=== PATIENT | female | born 1935 | race Asian ===

== ENCOUNTER → 2024-03-14 | Outpatient (CLI) | payer MEDICARE, OTHER, SELFPAY ==
--- NOTE | 2024-03-14 09:36 | XR_ITS ---
Examination: Screening digital mammography, unilateral right Computer aided detection 3-D breast Tomosynthesis, unilateral Date and time of exam: March 14, 2024 0941 hours Compared to mammograms dating to June 05, 2016 Indication: Screening Technique: Nonmagnified MLO, CC views of the right breast to been obtained, reconstructed from 3-D Tomosynthesis images. R2 computer aided detection program utilized for evaluation of suspicious masses and/or abnormal calcifications. 3-D Tomosynthesis images obtained. Findings: Scattered areas of fibroglandular density Benign calcifications. No interval suspicious masses Impression: BI-RADS category II Benign findings Recommend 1 year follow-up mammogram.
== END | disposition home or self-care (01) ==
PROVIDERS: PCP Family Medicine; Referring Provider Family Medicine; Visit Provider Family Medicine
DX: Z12.31 Encounter for screening mammogram for malignant neoplasm of breast (principal); R92.323 Mammographic fibroglandular density, bilateral breasts; R92.1 Mammographic calcification found on diagnostic imaging of breast
CPT/HCPCS: 77063; 77067

== ENCOUNTER → 2024-03-31 | Outpatient (CLI) | payer MEDICARE, OTHER, SELFPAY ==
[2024-03-31 10:03] LABS: Collection Type, Urine Clean Catch; Squamous Epithelial Cell,Urine 0 /hpf (0-5)
[2024-03-31 10:41] LABS: Basophils # (Auto) 0.1 Thou/mm3 (0.0-0.2); Basophils % (Auto) 1 % (0-2.5); Eosinophils # (Auto) 0.4 Thou/mm3 (0.0-0.5); Eosinophils % (Auto) 4 % (0-10); Hematocrit 35.9 % (36.0-46.0); Hemoglobin 12.2 g/dL (12.0-16.0); Immature Granulocytes % (Auto) 0 % (0-0); Immature Granulocytes Auto 0.02 Thou/mm3 (0.00-0.00); Lymphocytes # (Auto) 2.9 Thou/mm3 (1.0-4.8); Lymphocytes % (Auto) 30 % (10-50); Mean Corpuscular Hemoglobin 31.7 pg (25.0-35.0); Mean Corpuscular Volume 93 fL (80-100); Monocytes # (Auto) 0.6 Thou/mm3 (0.0-0.8); Monocytes % (Auto) 7 % (0-12); Neutrophils # (Auto) 5.6 Thou/mm3 (1.8-7.7); Neutrophils % (Auto) 58 % (37-80); Nucleated Red Blood Cell % 0 /100 WBC (0); Platelet Count 307 Thou/mm3 (140-440); RDW Standard Deviation 41.3 fL (36.4-46.3); Red Blood Count 3.85 Miln/mm3 (4.00-5.20); White Blood Count 9.6 Thou/mm3 (3.6-11.0)
[2024-03-31 10:43] LABS: Bilirubin,Urine Negative (Negative); Blood,Urine Negative (Negative); Clarity,Urine Clear (Clear/Hazy); Color,Urine Lt-Yellow (Lt Yel-Yel); Glucose, Urine Negative (Negative); Ketones,Urine Negative (Negative); Leukocyte Esterase,Urine Negative (Negative); Nitrite,Urine Negative (Negative); Protein,Urine Negative (Neg - Trace); RBC,Urine 1 /hpf (0-3); Specific Gravity,Urine 1.011 (1.001-1.035); Urobilinogen,Urine Negative mg/dL (0.0-1.0); WBC,Urine 1 /hpf (0-5)
[2024-03-31 10:51] LABS: Alanine Aminotransferase 18 U/L (10-49); Albumin, Serum 4.8 gm/dL (3.4-4.8); Albumin/Globulin Ratio 1.7 (1.2-2.2); Alkaline Phosphatase 74 U/L (46-116); Anion Gap 8 (7-16); Aspartate Amino Transferase 26 U/L (0-34); BUN/Creatinine Ratio 17 Ratio (12-20); Bilirubin,Total 0.5 mg/dL (0.3-1.2); Blood Urea Nitrogen 19 mg/dL (9-23); Calcium 10.1 mg/dL (8.3-10.6); Calcium (Corrected) 10.1 mg/dL (8.5-10.1); Carbon Dioxide 28.2 mMol/L (20.0-31.0); Cardiac Risk Estimate 3.5 RATIO (3.7-5.6); Chloride 103 mMol/L (98-107); Cholesterol 214 mg/dL (132-200); Creatinine (Component) 1.1 mg/dL (0.6-1.3); Globulin 2.8 gm/dL (2.3-3.5); Glucose 107 mg/dL (74-106); HDL Cholesterol 61 mg/dL (40-60); LDL Cholesterol,Calculated 125 mg/dL (0-130); Osmolality,Calculated 279 (275-295); Potassium 4.6 mMol/L (3.4-5.1); Sodium 139 mMol/L (136-145); Thyroid Stimulating Hormone 2.74 uIU/mL (0.55-4.78); Total Protein 7.6 gm/dL (5.7-8.2); Triglycerides 138 mg/dL (30-150); eGFR 48 See Note
== END | disposition home or self-care (01) ==
LOC: COPL 09:21
PROVIDERS: PCP Family Medicine; Referring Provider Family Medicine; Visit Provider Family Medicine
DX: I10 Essential (primary) hypertension (principal); E78.00 Pure hypercholesterolemia, unspecified
CPT/HCPCS: 36415; 80053; 80061; 81001; 84443; 85025

== ENCOUNTER 2024-04-13 19:53 | Emergency (ER) | payer MEDICARE, OTHER, SELFPAY ==
[2024-04-13 20:00] VITALS: BP 171/81; PULSE 74; RESP 16; TEMP 37.2; O2SAT 99
[2024-04-13 20:01] VITALS: RESP 16; O2SAT 98; BMI 24.2
--- NOTE | 2024-04-13 21:16 | EDNOTE_ITS ---
ED Fall Injury RME/HPI General Chief Complaint: Fall Stated Complaint: FALL/ BACK PAIN Time Seen by Provider: 04/13/24 20:55 Arrival date/time: 04/13/24 19:53 RME / HPI RME / HPI Narrative: Patient is a 88-year-old female with past medical history of hypertension, CAD s/p 1 stent, breast cancer s/p left mastectomy, asthma, osteoarthritis, GERD, right ear deafness who was brought in by ambulance on 04/13/2024 due to ground level fall around 5 pm today at her home. Patient was mopping and slipped landing on her hardwood floor. She thinks she landed on her side and denies hit to head or loss of consciousness. The fall was unwitnessed and patient was able to crawl to her watch to call for help. She takes a baby aspirin daily. She denies any dizziness, lightheadedness prior to fall. Patient's daughter at the bedside to help provide history. Patient lives alone and is typically independent with all ADLs. The patient reports 10/10 right shoulder pain and low back pain. MD complaint: fall Onset (ago): hour(s) Fall from: standing Fall witnessed: no Place fall occurred: home Loss of consciousness: none Prolonged down time: yes Symptoms prior to fall: none Context: tripped/slipped Location of injury: back and other (right shoulder) Location of injury - extremities: Right: shoulder Severity: severe Severity scale (1-10): 10 Related Data Home Medications ?Medication ?Instructions ?Recorded ?Confirmed loratadine 10 mg capsule 10 mg PO QDAY 10/23/1706/10 metoprolol succinate 50 mg 50 mg PO QDAY 10/23/1706/29 tablet,extended release 24 hr (Toprol XL) fluticasone propionate 50 1 - 2 spray intranasal QDAY 01/16/21 06/10/22 mcg/actuation nasal spray,suspension losartan 100 mg tablet 100 mg PO DAILY 06/10/2206/29 Previous Rx's ?Medication ?Instructions ?Recorded omeprazole 40 mg capsule,delayed 40 mg PO QDAY #30 cap s 10/23/17 release acetaminophen 500 mg tablet 1,000 mg (2 x 500 mg) PO Q 6H PRN 08/25/21 pain #20 tabs meclizine 25 mg tablet 25 mg PO BID PRN dizziness # 20 tabs 12/27/22 hydrocodone 2.5 mg-acetaminophen 1 tab PO BID PRN pain (scale score 04/14/24 325 mg tablet 7-10) 7 days #14 tabs Allergies Allergy/AdvReac Type Severity Reaction Status Date / Time No Known Allergies Allergy Verified 12/27/22 09:48 Review of Systems Review of Systems Systems Reviewed: All systems reviewed, normal except as documented Past Medical History Past Medical History Comments PMH COMMENT: Past Medical History: Hypertension, CAD s/p 1 stent, breast cancer s/p left mastectomy (no chemo or radiation), asthma, osteoarthritis, GERD, right ear deafness Family History: Surgical History: Left mastectomy, PCI with 1 stent, right ear surgery Social History: Denies history of smoking, denies current alcohol use, denies recreational drug use. Patient lives alone and is independent with all ADLs. Current Medications: Aspirin 81 mg qday, metoprolol succinate 50 mg qday, losartan 100 mg qday, omeprazole 40 mg qday, montelukast 10 gm qday, loratidine 10 mg qday, fluticasone inhaler, celecoxib as needed (Source: Patient EMT card and patient recall) Allergies: No known drug allergies ED Exam Narrative Physical exam: Physical Exam General: Awake and in mild distress. Conversational and non-toxic appearing. HEENT: Normocephalic, atraumatic, mucous membranes moist. Heart: Regular rate and rhythm, no murmurs. Lungs: Clear to auscultation with no wheezing or crackles. Abdomen: Soft, nondistended, nontender, positive bowel sounds. ?No guarding or rebound tenderness. Neurologic: Alert and oriented x3, no gross neurological deficit, and patient able to move all 4 extremities. Back: Tenderness to palpation of the lumbar area, no obvious step offs or deformity. Extremities: No edema. Right shoulder with severe tenderness to palpation posteriorly. The right forearm is flexed, shoulder is adducted and internally rotated. Patient unable to extend shoulder or forearm secondary to pain. Skin: No rash or ecchymoses over the areas of pain including the shoulders, back, or hips. Course Quality Measures none Orders Category Date Time Status CT cervical spine wo con Stat Exams 04/13/24 21:[address] head/brain wo con Stat Exams 04/13/24 21:20 Completed XR humerus RT min 2V Stat Exams 04/13/24 21:20 Completed XR lumbar spine 2-3V Stat Exams 04/13/24 21:20 Completed XR shoulder RT min 2V Stat Exams 04/13/24 21:20 Completed Morphine Inj Med 04/13/24 21:25 Discontinued 2 mg IVP X1 ONE Reevaluation(s) Reevaluation #1: Patient was sat up with RN Victoriano George and attempted to help patient walk. Patient could stand with support but did not ambulate secondary to pain. Counseled patient that she may benefit from staying for PT evaluation in case acute rehab would be recommended for her. Patient insists upon returning home. Patient's daughter was called and stated that patient would like to return home. She states that family will be around her and keep a close eye on her. 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 Vital Signs Vital signs: Vital Signs Temperature 99.0 F 04/13/24 20:00 Pulse Rate 74 04/13/24 20:00 Respiratory Rate 16 04/13/24 20:00 Blood Pressure 171/81 H 04/13/24 20:00 Pulse Oximetry (%) 99 04/13/24 20:00 Oxygen Delivery Method Room Air 04/13/24 20:00 Fall Patient data External records reviewed:: [facility] previous records and EMS form Clinical information provided by:: patient, EMS and family Social determinants that could affect healthcare access:: none Patient has the following chronic illnesses:: As above How is presenting disease/condition affected by chronic disease/condition?: uneffected by Evaluation data The following diagnostics were reviewed and interpreted by me:: radiology exam(s) Lab and/or radiology exams considered but not ordered:: CT lumbar spine, pelvis XR Interpretation Summary: . Medications / Prescriptions Medications or Prescriptions considered but not ordered:: None Medication administrations:: Medication Administration History Discontinued Medications Morphine Sulfate (Morphine Sulf Inj 10 Mg/Ml Vial) 2 mg IVP X1 ONE Stop: 04/13/24 21:26 Last Admin: 04/13/24 21:43 Dose: 2 mg Documented By: DIANE Pain meds Consultations Consultation(s) initiated? (list below): No Diagnosis Fall Differential Diagnosis: dislocation of shoulder region Most likely diagnosis given after review of the tests above:: Ground level fall with contusions to the right shoulder and lower back/buttock Admission Indicated Admission indicated?: not indicated Admission Request Was there a request for admission?: No Disposition Plan Disposition Plan: Discharge Discharge Attestation Discharge Attestation: The patient and all family members were given an opportunity to ask questions and understood the discharge instructions. Discharge instructions specifically effects, indications for sooner follow up or return to the emergency department, and the expected course of current diagnosis. Patient condition: Stable Discharge Plan Plan Patient Disposition: Left Against Medical Advice Patient condition on transfer: Stable Prescriptions/Referrals Prescriptions/Med Rec: New hydrocodone-acetaminophen 2.5-325 mg tablet 1 tab PO BID MDD 5-650 mg PRN (Reason: pain (scale score 7-10)) 7 Days Qty: 14 0RF Rx Instructions: Take 1 tablet up to 2 times daily for severe pain. No Action metoprolol succinate [Toprol XL] 50 mg Tablet Extended Release 24 Hr 50 mg PO QDAY loratadine 10 mg Capsule 10 mg PO QDAY omeprazole 40 mg capsule,delayed release(DR/EC) 40 mg PO QDAY Qty: 30 0RF Rx Instructions: for heartburn fluticasone propionate 50 mcg/actuation spray,suspension 1 - 2 spray INTRANASAL QDAY acetaminophen 500 mg tablet 1,000 mg PO Q6H PRN (Reason: pain) Qty: 20 0RF Rx Instructions: prn stomach pain losartan 100 mg tablet 100 mg PO DAILY meclizine 25 mg tablet 25 mg PO BID PRN (Reason: dizziness) Qty: 20 0RF Referrals: Merle Rojas MD [Primary Care Provider] - In 1 week Problem List Clinical Impression: Ground-level fall, Contusion of right shoulder, Contusion of lower back Patient/Caregiver Discharge Instructions Education Materials: Fall Prevention Assessing Risk, Preventing Falls Moving Safely ..., Preventing Falls Moving Safely ..., Exercises to Prevent Falls, ED Back Contusion, ED Shoulder Contusion Additional Instructions: You have been prescribed a strong pain medication called hydrocodone- acetaminophen or [place]. You can take this medication up to twice in a day for severe pain. Be sure not to take more than this as there is a risk of overdose with this type of medication that can cause difficulty breathing and confusion. Be sure to utilize your walker at home to move around to prevent falls. Please limit activity that will cause further pain or risk to falls. Return to the ED if you have any more falls or pain worsens. Print Language: [place] MD Attestation MD Attestation I was present for the history and physical exam, reviewed the treatment plan with the resident, discussed the reevaluation, reviewed the note and agree.
--- NOTE | 2024-04-13 21:20 | XR_ITS ---
Examination: CT cervical spine without contrast 2-D sagittal reconstructions 2-D coronal reconstructions 3-D reconstructions. Exam date and time: April 13, 2024 at 9:48 PM INDICATIONS: Ground-level fall today with injury to the neck, neck pain CTDI:vol (mGy) 12.5 DLP: (mGycm) 280 Technique: Multiple 2 mm axial sections of the cervical spine have been obtained. The coronal and sagittal reconstructions have been obtained. 3-D reconstructions have been obtained. Low dose protocols were performed. One or more of the following dose reduction techniques were used; automated exposure control, adjustment of the mA and/or KV according to patient size, use of iterative reconstruction technique. Findings: Axial sections demonstrate intact base of the skull. C1 exhibit satisfactory relationship to the odontoid. No acute cervical vertebral body fracture seen. Alignment posterior spinous processes satisfactory. Impression: No acute cervical fracture.
--- NOTE | 2024-04-13 21:20 | XR_ITS ---
Examination: Lumbar spine 3 views TECHNIQUE: AP lateral: Lateral lower lumbar spine 3 views Exam date and time: April 13, 2024 10:10 PM INDICATIONS: Patient fell today with injury to lower back, lower back pain. FINDINGS: Severe osteopenia No acute lumbar fracture Diffuse moderate to advanced lumbar degenerative disc disease Prominent lumbar spondylosis IMPRESSION: No acute lumbar fracture
--- NOTE | 2024-04-13 21:20 | XR_ITS ---
Examination: CT brain head without contrast. 2-D sagittal coronal reconstructions Date and time of exam:April 13, 2024 2146 hours INDICATIONS: Ground-level fall today with injury of the head, head pain CTDI: vol (mGy):46.3 DLP: (mGycm):918 Technique: Multiple CT axial sections of the brain have been obtained, 5 mm slice thickness. Contrast has not been administered. 2-D sagittal, coronal reconstructions have been obtained Low dose protocols were performed. One or more of the following dose reduction techniques were used; automated exposure control, adjustment of the mA and/or KV according to patient size, use of iterative reconstruction technique. Findings: No significant ventricular enlargement. Intra-axial or extra-axial hemorrhage density is not seen. No mass effect or midline shift Basal cisterns are not remarkable. Fourth ventricle is midline. Cranial vault intact. Impression: Negative for acute hemorrhage, mass effect or midline shift
--- NOTE | 2024-04-13 21:20 | XR_ITS ---
Examination: Humerus 2 views right Technique: Humerus, AP lateral 2 views Date and time of exam: April 13, 2024 2156 hours INDICATIONS: Ground-level fall today with into the arm, arm pain FINDINGS: No shoulder fracture or dislocation Shaft of the humerus is intact Impression: No acute fracture
--- NOTE | 2024-04-13 21:20 | XR_ITS ---
Examination: Shoulder,right, 3 views Technique: Shoulder AP internal rotation, AP external rotation, Y view shoulder, 3 views Exam date and time :April 13, 2024 2156 hours INDICATIONS: Ground-level fall today with injury to the shoulder, shoulder pain FINDINGS: Prominent osteopenia. Significant osteoarthritis glenohumeral joint. No fracture or shoulder dislocation IMPRESSION: No shoulder fracture or dislocation
[2024-04-13] MEDS: MORPHINE SULF INJ 10 MG/ML VIAL 2 MG IVP (21:43)
== END 2024-04-14 01:23 | disposition left against medical advice (07) ==
PROVIDERS: Emergency Provider Student in an Organized Health Care Education/Training Program; PCP Family Medicine
DX: S40.011A Contusion of right shoulder, initial encounter (principal); S30.0XXA Contusion of lower back and pelvis, initial encounter; I10 Essential (primary) hypertension; H91.91 Unspecified hearing loss, right ear; I25.10 Atherosclerotic heart disease of native coronary artery without angina pectoris; M19.90 Unspecified osteoarthritis, unspecified site; Z95.5 Presence of coronary angioplasty implant and graft; Z90.12 Acquired absence of left breast and nipple; Z85.3 Personal history of malignant neoplasm of breast; Z53.29 Procedure and treatment not carried out because of patient's decision for other reasons; Z79.899 Other long term (current) drug therapy; Z79.82 Long term (current) use of aspirin; W01.0XXA Fall on same level from slipping, tripping and stumbling without subsequent striking against object, initial encounter; Y93.E5 Activity, floor mopping and cleaning; Y92.009 Unspecified place in unspecified non-institutional (private) residence as the place of occurrence of the external cause
CPT/HCPCS: 70450; 72100; 72125; 73030; 73060; 96374; 99284; J2270